=== PATIENT | female | born 1985 | race Hispanic/Latino ===

== ENCOUNTER 2019-08-14 10:48 | Emergency (ER) | payer SELFPAY ==
[2019-08-14 11:29] LABS: #Basophils 0.1 thou/uL (0.0-0.2); #Lymphocytes 2.2 thou/uL (1.20-3.40); #Monocytes 0.5 thou/uL (0.11-0.59); #Neutrophils 9.7 thou/uL (1.40-6.50); %Basophils 0.9 % (0.0-1.0); %Eosinophils 0.3 % (0.0-10.0); %Lymphocytes 17.4 % (21.0-51.0); %Monocytes 3.8 % (0.0-10.0); %Neutrophils 77.6 % (42.0-75.0); Hemoglobin 12.5 g/dL (12.0-16.0); Mean Corpuscular HGB CONC 32.2 g/dL (32.0-36.0); Mean Corpuscular Hemoglobin 30.1 pg (27.0-31.0); Mean Corpuscular Volume 93.5 fL (78.0-98.0); Mean Platelet Volume 6.9 fL (7.4-10.4); Platelet Count 314 thou/uL (130-400); RBC Distribution Width 11.1 % (11.5-14.5); Red Blood Cell (RBC) Count 4.15 mill/uL (4.20-5.40); White Blood Cell (WBC) Count 12.5 thou/uL (4.8-10.8)
[2019-08-14 11:35] LABS: BHCG - Serum POSITIVE (NEGATIVE); Pregs Control Background? CLEAR/WHITE (CLR/WHITE); Pregs Control Bar Appear? YES (CONTROL BAR)
[2019-08-14 12:06] LABS: ALT (SGPT) 11 U/L (8-55); AST (SGOT) 12 U/L (5-34); Albumin 4.3 g/dL (3.5-5.0); Alkaline Phosphatase 49 U/L (40-110); Anion Gap 11 mmol/L (10-20); BUN (Urea Nitrogen) 8 mg/dL (7.0-18.7); Bilirubin, Total 0.5 mg/dL (0.2-1.2); Calc. Creatinine Clearance 0 mL/min (70-130); Calcium 8.8 mg/dL (7.8-10.44); Carbon Dioxide 23 mmol/L (22-29); Chloride 108 mmol/L (98-107); Estimated GFR-MDRD Greater than 90; Globulin 2.4 g/dL (2.4-3.5); Glucose 97 mg/dL (70-105); Potassium 3.4 mmol/L (3.5-5.1); Protein, Total 6.7 g/dL (6.0-8.3); Sodium 139 mmol/L (136-145)
[2019-08-14] MEDS ORDERED: Lorazepam 2 MG/ML VIAL ONE (12:34)
[2019-08-14] MEDS ORDERED: Morphine 4 MG/ML VIAL ONE (12:39)
[2019-08-14] MEDS ORDERED: Misoprostol 200 MCG TAB VAG SCH (13:00)
--- NOTE | 2019-08-14 14:11 | ULT ---
EXAM: Pelvic ultrasound HISTORY: Vaginal bleeding COMPARISON: None TECHNIQUE: Multiple grayscale and color Doppler images were obtained in a transabdominal and transvag inal pelvic ultrasound. Spectral analysis of the Doppler waveforms of the ovaries were performed. FINDINGS: CERVIX: No evidence of nabothian cysts. UTERUS: Normal in size without focal abnormality. ENDOMETRIAL STRIPE: 1.2 mm. No free fluid is seen in the pelvis. RIGHT OVARY: Normal flow without focal mass. LEFT OVARY: Normal flow without focal mass. IMPRESSION: No significant pelvic abnormality
--- NOTE | 2019-08-14 16:33 | ULT ---
Pelvic sonogram transabdominal and transvaginal imaging HISTORY: Pelvic pain. FINDINGS: Urinary bladder is incompletely distended. Uterus has a heterogeneous echotexture and measu res up to 8.2 cm. Endometrium measures up to 1.0 cm. Small amount of free fluid within the cul-de-sac. Ovaries not well visualized on this exam.. Better detailed on earlier exam on the same da te. IMPRESSION: Small amount of free fluid within the cul-de-sac. No evidence of intrauterine gestation.
--- NOTE | 2019-08-15 03:05 | CON ---
DATE OF CONSULTATION: 08/14/2019 HISTORY OF PRESENT ILLNESS: The patient is a 33-year-old female who presented to the emergency room for vaginal bleeding. She reports that she has been having vaginal bleeding, lower abdominal cramping for one week now. She reports a history of chronic anemia and irregular periods and did not realize that she was . She said that she has been having heavier bleeding than usual this last week and worsened today at day presentation with significant cramping. During her ER evaluation, the patient was noted to have significant vaginal bleeding with clots and possible products of conception passing. Her quantitative HCG was roughly at 100. Prior to my evaluation due to another emergency, recommendations were to give the patient 800 mcg of Cytotec. It was reported the patient was stable with a hemoglobin around 12 to 13 and normal vital signs. At the time of my arrival, the patient reports that she continues to have heavy vaginal bleeding and a lot of cramping. Again, she reconfirms that she was unaware that she was due to the baseline nature of her irregular periods and just assumed that she was having more irregular bleeding. She currently lives in a fairly unstable situation, working and living at a friend's house. While she is trying to earn money for a car, she reports a fairly frequent marijuana use and occasional cocaine use. PAST MEDICAL HISTORY: Chronic anemia. PAST SURGICAL HISTORY: D and C. SOCIAL HISTORY: Reports some marijuana use and cocaine use. On occasion, she does smoke about a half pack per day. MEDICATIONS: None. ALLERGIES: NONE. PHYSICAL EXAMINATION: VITAL SIGNS: Blood pressure 109/72, pulse of 102, respiratory rate of 18, saturating 97% on room air. GENERAL: She appeared to be in some distress. She is alert, oriented, cooperative, and pleasant to interact. HEENT: Head is normocephalic and atraumatic. LUNGS: Clear to auscultation bilaterally. HEART: Has a regular rate and rhythm. ABDOMEN: Pretty tender to palpation as the patient reports she is having quite a bit of abdominal cramping. EXTREMITIES: Nontender, nonedematous. Vulva has a lot of blood staining. On speculum exam, she has probably about 150 mL of blood in the vaginal vault and at the level of the os, she appears to have products of conception and actively passing through, these were grasped with ring forceps and gently teased through the cervical os. Once this was removed, there appeared to be placenta. The uterus was no longer bleeding any more. The patient's pain has significantly improved. A repeat ultrasound shows an empty uterus. ASSESSMENT AND PLAN: The patient is a 33-year-old female who has now completed spontaneous with no evidence of intrauterine products. The patient was discharged home with a hemoglobin of 12.5, hematocrit 38.9, and platelets of 314,000. She was given reassurance and was returned back to the care of the ER provider for complete disposition. Job ID: [id number]
== END 2019-08-14 18:00 | disposition home or self-care (01) ==
LOC: ERS 10:48
DX: O03.9 Complete or unspecified spontaneous abortion without complication (principal); O99.011 Anemia complicating pregnancy, first trimester; O99.331 Smoking (tobacco) complicating pregnancy, first trimester; F17.210 Nicotine dependence, cigarettes, uncomplicated
CPT/HCPCS: 36415; 76856; 80053; 84702; 84703; 85025; 86850; 86900; 86901; 88305; 93005; 96361; 96374; 96375; J2060; J2270